=== PATIENT | male | born 1995 | race African-American/Black ===

== ENCOUNTER 2021-11-18 20:22 | Emergency (ER) | payer SELFPAY ==
[~2021-11-18] VITALS: Ht 193 cm; Wt 82.0 kg
[2021-11-18 20:29] VITALS: BP 128/82
[2021-11-18] MEDS ORDERED: FAMOTIDINE 20MG TABLET PO NR (21:00)
[2021-11-18] MEDS ORDERED: ONDANSETRON 4MG ODT PO NR (21:00)
[2021-11-18] MEDS ORDERED: ONDA4TAB11 PO (22:25)
[2021-11-18] MEDS ORDERED: FAMO-135 MT (22:25)
[2021-11-18] MEDS ORDERED: DEXAMETHASONE 4MG TABLET PO ONE (23:00)
[2021-11-18] MEDS ORDERED: POTASSIUM CHLORIDE 20MEQ TABLET SR PO ONE (23:00)
[2021-11-18] MEDS ORDERED: DEXAMETHASONE 6MG TABLET PO NR (23:15)
== END 2021-11-18 23:50 | disposition home or self-care (01) ==
LOC: ER 20:22
DX: F12.188 Cannabis abuse with other cannabis-induced disorder (principal)
CPT/HCPCS: 99284; Q0162; J8540